=== PATIENT | male | born 1985 | race African-American/Black ===

== ENCOUNTER 2022-11-17 17:32 | Emergency (ER) | payer OTHER ==
[~2022-11-17] VITALS: Ht 162.6 cm; Wt 63.5 kg
[2022-11-17 17:38] VITALS: TEMP 97.3
[2022-11-17 18:06] LABS: PLATELET COUNT 224 K/uL (142-355)
[2022-11-17 18:10] LABS: POTASSIUM 3.4 mmol/L (3.6-5.2)
[2022-11-17 18:20] LABS: PARTIAL THROMBOPLASTIN TIME 26.3 SECONDS (24.5-33.6)
[2022-11-17 18:29] VITALS: BP 119/67
== END 2022-11-17 18:30 | disposition short-term general hospital (02) ==
LOC: ED 17:32
PROVIDERS: Internal Medicine
DX: I21.3 ST elevation (STEMI) myocardial infarction of unspecified site (principal)
CPT/HCPCS: 36415; 80053; 84484; 85027; 85610; 85730; 93005; 96365; 96375; 99285; J1644; J2270; J2405